=== PATIENT | male | born 1960 | race Two or more races ===

== ENCOUNTER → 2017-01-11 | Day surgery (SDC) | payer BC ==
[~2017-01-11] MED LIST: IV RINGERS,LACTATED 1000ML 1,000 ML IV SCH; LEVO50TA5 PO; LISI10TA2 PO; NAPR500T3 PO; PROPOFOL 20 ML IV ONE
--- NOTE | 2017-01-11 11:34 | PDOC1 ---
HISTORY & PHYSICAL H&P Duc Phoenix [id number] 1960 12/21/2016 04:00 PM 05/16 [place] [facility], [facility] OUR PATIENTS COME FIRST [address] [place] [address] Ph. [phone] Patient: Duc Phoenix Date of : 1960 Date: 12/21/2016 4:00 PM Visit Type: Consult This 56 year old male presents for Anemia and Family h/o of colon cancer/saray. History of Present Illness: 1. Anemia Type of anemia was acquired for deficiency anemia (iron deficient). Additional information: Patient has mild anemia. No rectal bleeding. Mother had colon cancer. She is diseased at age 62. 2. Family h/o of colon cancer/saray Mother had colon cancer and is diseased at age 62. INTAKE COMMENTS: Intake Comments: Nurse Note: the pt is here due to Anemia, the pt states that his last colonoscopy about 10 years ago. The pt's mother had colon cancer. His last Hgb was 10.8 PROBLEM LIST: Problem Description Onset Date Chronic Notes Hypertension 12/21/2016 Y PAST MEDICAL/SURGICAL HISTORY (Detailed) Disease/disorder Onset Date Management Date Comments 1981 Arthroscopy knee Cholelithiasis 2013 PP 06/07/2016 - patient did not get surgery because she did not have any insurance at that time Hypertension 2012 Medications (Active): Started Medication Directions Instruction Stopped 12/07/2016 levothyroxine 50 mcg tablet take 1 tablet by oral route every day 11/01/2016 lisinopril 10 mg tablet take 1 tablet by oral route every day 09/06/2016 naproxen 500 mg tablet take 1 tablet by oral route 2 times every day with food Allergies: Ingredient Reaction Medication Name Comment NO KNOWN ALLERGIES REVIEW OF SYSTEMS System Neg/Pos Details Constitutional Negative Chills, fever, malaise and weight loss. ENMT Negative Sore throat. Eyes Negative Double vision. Respiratory Negative Dyspnea and wheezing. Cardio Negative Chest pain and irregular heartbeat/palpitations. GI Positive See HPI. GI Negative See HPI. Negative Dysuria and hematuria. Endocrine Negative Cold intolerance and heat intolerance. Psych Negative Anxiety. Integumentary Negative Hives and rash. MS Negative Joint pain. Temo/Lymph Negative Easy bleeding and easy bruising. Allergic/Immuno Negative Food allergies. PHYSICAL EXAM: Exam Findings Details Constitutional Normal Well developed. Eyes Normal Conjunctiva - Right: Normal, Left: Normal. Sclera - Right: Normal, Left: Normal. Nasopharynx Normal Lips/teeth/gums - Normal. Neck Exam Normal Inspection - Normal. Thyroid gland - Normal. Respiratory Normal Inspection - Normal. Auscultation - Normal. Cardiovascular Normal Regular rate and rhythm. No murmurs, gallops, or rubs. Vascular Normal Pulses - Carotids: Normal, Femoral: Normal, Dorsalis pedis: Normal. Abdomen Normal Inspection - Normal. Anterior palpation - No guarding. No abdominal tenderness. No hepatic enlargement. No splenic enlargement. No hernia. No ascites. Skin Normal Inspection - Normal. Extremity Normal No edema. Psychiatric * Oriented to time, place, person and situation. Psychiatric Normal Appropriate mood and effect. Assessment/Plan # Detail Type Description 1. Assessment Other iron deficiency anemia (D50.8). Patient Plan Await colonoscopy result. 2. Assessment Family history of colon cancer (Z80.0). Patient Plan schedule colonoscopy at Plan Orders Further diagnostic evaluations ordered today include(s) Colonoscopy to be performed today. He is to schedule a follow-up visit with Cheryle Ashton MD upon completion of work-up Electronically signed by: Cheryle Ashton MD 12/21/2016 04:44 PM Document generated by: Cheryle Ashton 12/21/2016 04:44 PM Markos Olvera MD, Family Practice; Jose Franks MD Internal Medicine; Bella Olsen MD, Internal Medicine; Meliton Ashton MD Internal Medicine; Cheryle Ashton MD, Gastroenterology; Grzegorz Remy MD, Rheumatology, S. Javon Zarco, Physical Medicine/[place] APRN ------ 01/11/17 Patient seen and examined. No change in H&P. CHERYLE ASHTON MD Jan 11, 2017 11:34
[2017-01-11 12:24] VITALS: BP 104/67
== END | disposition home or self-care (01) ==
LOC: SURG 10:42
PROVIDERS: ATTEND Internal Medicine Gastroenterology
DX: D50.9 Iron deficiency anemia, unspecified (principal); I10 Essential (primary) hypertension; M19.91 Primary osteoarthritis, unspecified site; E03.9 Hypothyroidism, unspecified; Z80.0 Family history of malignant neoplasm of digestive organs; Z87.39 Personal history of other diseases of the musculoskeletal system and connective tissue; Z86.39 Personal history of other endocrine, nutritional and metabolic disease
CPT/HCPCS: 45378; J2704